=== PATIENT | male | born 1985 ===

== ENCOUNTER 2020-09-07 23:41 | Emergency (ER) | payer BC ==
[2020-09-08] MEDS ORDERED: Alum Hydrox/Mag Hydrox/Simeth 15 ML, Lidocaine 2% 5 ML PO ONE ×2 (00:07)
--- NOTE | 2020-09-08 00:18 | CR ---
INDICATION: Chest pain TECHNIQUE: Portable upright AP view of the chest COMPARISON: None FINDINGS: The lungs are clear. There is no sizable pleural effusion or pneumothorax. The cardiomediastinal silhouette is normal. The visualized osseous structures are unremarkable. IMPRESSION: No acute intrathoracic process. Dictated by Fariha Valenzuela MD @ Sep 08 2020 12:15AM Signed by Dr. Fariha Valenzuela @ Sep 08 2020 12:16AM
[2020-09-08 01:21] LABS: BLOOD UREA NITROGEN,BUN 15 mg/dL (7.0-18.0); CARBON DIOXIDE,CO2 26.3 mmol/L (21.0-32.0); CHLORIDE,CL 105 mmol/L (98-107); GLUCOSE RANDOM 138 mg/dL (74-106); LIPASE 199 U/L (73-393); SODIUM,NA 141 mmol/L (136-148)
--- NOTE | 2020-09-08 01:52 | EDM.PDOC ---
ED HPI GENERAL MEDICAL PROBLEM - General Chief Complaint: Chest Pain Stated Complaint: CHEST PAIN Time Seen by Provider: 09/07/20 23:57 - History of Present Illness INITIAL COMMENTS - FREE TEXT/NARRATIVE: CHIEF COMPLAINT(S): Chest pain HISTORY OF PRESENT ILLNESS: This is a 35-year-old man with a past medical history of psoriasis on Humira who comes to the emergency department with a chief complaint of chest pain. The patient states that for the last 3 to 4 hours he has been experiencing intense back and chest pain. He states that he is some associated difficulty with breathing but denies any cough. He states that the pain is mainly located in the middle of his back and radiates anteriorly to the epigastric area. He describes as a sharp 6-7 out of 10 pain he states that movement does make it worse. He states he has not yet tried any pain medication. So there is no relieving factors. He states that he additionally had some pain similar the night before. He denies any sick contacts any diaphoresis, nausea or vomiting. He states that it was probably heartburn but he was concerned so he came to the emergency department. He denies any recent travel, recent surgery, prior history of DVT or PE. He denies any family history of early onset CAD or sudden onset at young age. He denies any abdominal pain, fevers or chills. REVIEW OF SYSTEMS: Constitutional: Denies fever, chills. Eyes: Denies eye pain Ears, Nose, Mouth, & Throat: Denies earache Cardiovascular: Positive for chest pain Respiratory: Denies shortness of breath Gastrointestinal: Denies Nausea, vomiting, diarrhea, hematochezia. Genitourinary: Denies hematuria Skin:Denies a rash MSK: Positive for back pain. Neurological: Denies blurred vision, numbness, tingling, weakness Psychiatric: Denies depression PAST MEDICAL HISTORY: As per history of present illness and as reviewed below otherwise noncontributory. SURGICAL HISTORY: As per history of present illness and as reviewed below otherwise noncontributory. SOCIAL HISTORY: As per history of present illness and as reviewed below otherwise noncontributory. FAMILY HISTORY: As per history of present illness and as reviewed below otherwise noncontributory. EXAMINATION OF ORGAN SYSTEMS/BODY AREAS: Constitutional: Blood pressure is 132/87, heart rate 87, respiratory rate 18 with an oxygen saturation of 97% on room air. Temperature 36.1 General: Obese gentleman who does not appear to be in acute distress. Psychiatric: Appropriate mood and affect. Eyes: No scleral icterus or conjunctival erythema ENMT: Moist mucous membranes. No pharyngeal erythema Cardiovascular: Regular, rate, and rhythm. No gallops, murmurs, or rubs. Bilateral upper extremity pulses symmetric and intact. No peripheral edema. No JVD. No chest wall tenderness to palpation. Respiratory: Lungs clear to auscultation bilaterally. No wheezes, rales, or rhonchi. Gastrointestinal: Soft, non-tender, non-distended. Normoactive bowel sounds Genitourinary: No suprapubic tenderness Musculoskeletal: Normal range of motion. No midline cervical, thoracic, or lumbar tenderness. No paraspinal muscle tenderness. Skin: No lesions or abrasions. Neurological: Alert, GCS 15 MEDICAL DECISION MAKING AND COURSE IN THE ED WITH INTERPRETATION/REVIEW OF DIAGNOSTIC STUDIES: This is a 35-year-old man with a past medical history of obesity and psoriasis on Humira who comes to the emergency department with acute onset back pain that radiates anteriorly around his chest without any evidence of musculoskeletal tenderness on examination. At this time it is uncertain as to what is causing the patient's pain however he is low risk for ACS given his history. We did obtain an EKG which did not reveal any acute signs of ischemia. At this time the patient appears well with normal vital signs. Will trial the patient with a GI cocktail and reevaluate. Time:2340 Twelve-lead EKG interpreted by myself. Normal sinus rhythm at a rate of 135 beats per minute. Normal axis. TN interval is 135 ms. QRS duration is [address] segments are normal without elevations or depressions. No T wave inversions no Q waves present. Hypertrophy not noted. No prior EKGs in our system. Interpretation: Sinus rhythm On reevaluation the patient stated that his pain had improved slightly however he had continued pain. Therefore at this time I did discuss that we would obtain screening labs including CBC, CMP, lipase and a chest x-ray. We will also obtain a troponin. Given the patient pain is slightly improved we will hold off and reevaluate. Differential at this time does include pancreatitis, peptic ulcer disease, gastritis, GERD, ACS. Laboratory: CBC reveals a mild leukocytosis of 11.36 without any left shift. CMP reveals mildly elevated ALT at 74 otherwise unremarkable. Troponin is negative. Lipase is 199. The radiological images were viewed by myself along with reading the report from the radiologist. Chest x-ray does not reveal any acute intrathoracic process. After labs and imaging I did reevaluate the patient. The patient had complete resolution of his pain. I did discuss them at this time that is uncertain as to what is causing the patient's pain however given that it did improve with a GI cocktail reflux disease, peptic ulcer disease, gastritis is a consideration. I did discuss with him that I had like him to continue with famotidine 40 mg at bedtime for the next 2 weeks. I discussed that if there is a component of musculoskeletal pain that he could use Tylenol and [id number] Voltaren cream. I did encourage the patient not to take Tylenol at this time given concern for possible peptic ulcer disease/gastritis/GERD. I encouraged the patient to follow-up with his primary care physician for further monitoring. He is to return for any new or worsening symptoms. He was amenable to discharge at this time and had no further questions. DISPOSITION: The patient was discharged home in stable condition. The patient will follow up with primary care physician within 2 to 3 days CONDITION: Fair PROCEDURES: None FINAL IMPRESSION(S)/DIAGNOSES: 1. Acute back pain 2. Acute chest pain, atypical Bradley Swain M.D. chest area Pain Score (Numeric/FACES): 5 - Related Data Allergies Allergy/AdvReac Type Severity Reaction Status Date / Time No Known Allergies Allergy Verified 09/08/20 00:04 Home Meds: Home Meds Adalimumab [Humira] 1 injection INJECT ASDIRECTED 09/08/20 [History] Famotidine [Pepcid] 40 mg PO BEDTIME #14 tablet 09/08/20 [Rx] Past Medical History HEENT History: Reports: None Cardiovascular History: Reports: None Respiratory History: Reports: None Gastrointestinal History: Reports: None Genitourinary History: Reports: None Musculoskeletal History: Reports: Other (See Below) Other Musculoskeletal History: Psoriasis Neurological History: Reports: None Psychiatric History: Reports: None Endocrine/Metabolic History: Reports: None Insulin Pump Model and Maintenance Engineer: None Immunologic History: Reports: None Oncologic (Cancer) History: Reports: None Dermatologic History: Reports: None - Past Surgical History HEENT Surgical History: Reports: Tonsillectomy Social & Family History - Caffeine Use Caffeine Use: Reports: Energy Drinks - Recreational Drug Use Recreational Drug Use: No ED ROS GENERAL - Review of Systems Review Of Systems: See Below ED EXAM, GENERAL - Physical Exam Exam: See Below Course - Vital Signs Last Recorded V/S: Last Vital Signs Temp 36.1 C 09/07/20 23:45 Pulse 92 09/08/20 02:08 Resp 18 09/07/20 23:45 BP 131/64 09/08/20 02:08 Pulse Ox 93 L 09/08/20 02:08 - Orders/Labs/Meds Labs: Laboratory Tests 09/07/20 09/07/20 Range/Units 23:44 23:44 WBC 11.36 H (4.0-11.0) K/uL RBC 5.32 (4.50-5.90) M/uL Hgb 15.1 (13.0-17.0) g/dL Hct 44.7 (38.0-50.0) % MCV 84.0 (80.0-98.0) fL MCH 28.4 (27.0-32.0) pg MCHC 33.8 (31.0-37.0) g/dL RDW Std Deviation 39.8 (28.0-62.0) fl RDW Coeff of Danielito 13 (11.0-15.0) % Plt Count 266 (150-400) K/uL MPV 11.10 (7.40-12.00) fL Neut % (Auto) 57.0 (48.0-80.0) % Lymph % (Auto) 27.4 (16.0-40.0) % [place] % (Auto) 10.5 (0.0-15.0) % Eos % (Auto) 4.6 (0.0-7.0) % Baso % (Auto) 0.5 (0.0-1.5) % Neut # (Auto) 6.5 H (1.4-5.7) K/uL Lymph # (Auto) 3.1 H (0.6-2.4) K/uL [place] # (Auto) 1.2 H (0.0-0.8) K/uL Eos # (Auto) 0.5 (0.0-0.7) K/uL Baso # (Auto) 0.1 (0.0-0.1) K/uL Sodium 141 (136-148) mmol/L Potassium 4.0 (3.5-5.1) mmol/L Chloride 105 (98-107) mmol/L Carbon Dioxide 26.3 (21.0-32.0) mmol/L BUN 15 (7.0-18.0) mg/dL Creatinine 1.1 (0.8-1.3) mg/dL Est Cr Clr Drug Dosing 110.02 mL/min Estimated GFR (MDRD) > 60.0 ml/min Glucose 138 H (74-106) mg/dL Calcium 8.9 (8.5-10.1) mg/dL Total Bilirubin 0.5 (0.2-1.0) mg/dL AST 26 (15-37) IU/L ALT 74 H (14-63) IU/L Alkaline Phosphatase 51 (46-116) U/L Troponin I < 0.050 (0.000-0.056) ng/mL Total Protein 7.6 (6.4-8.2) g/dL Albumin 3.8 (3.4-5.0) g/dL Globulin 3.8 (2.6-4.0) g/dL Albumin/Globulin Ratio 1.0 (0.9-1.6) Lipase 199 (73-393) U/L Meds: Medications Discontinued Medications Generic Name Dose Route Start Last Admin Trade Name Freq PRN Reason Stop Dose Admin Al Hydroxide/Mg Hydroxide 15 0 ml 09/08/20 00:07 09/08/20 00:11 ml/ Lidocaine HCl 5 ml PO 09/08/20 00:08 1 each ONETIME ONE Administration Departure - Departure Time of Disposition: 01:51 Disposition: Home, Self-Care 01 Condition: Fair Clinical Impression: GERD (gastroesophageal reflux disease) - Discharge Information *PRESCRIPTION DRUG MONITORING PROGRAM REVIEWED*: No *COPY OF PRESCRIPTION DRUG MONITORING REPORT IN PATIENT VIRA: No Prescriptions: Famotidine [Pepcid] 40 mg PO BEDTIME #14 tablet Instructions: Gastroesophageal Reflux Disease, Adult, [id number] Referrals: Levon Gaytan MD [Primary Care Provider] - Forms: ED Department Discharge Additional Instructions: You were evaluated today on an emergent basis. At this time your work-up was negative. At this time given that your symptoms improved with our GI cocktail I do believe there is some reflux disease or ulcers that may be causing your pain. I recommend using Pepcid 40 mg at bedtime for the next 2 weeks. In addition, for your back pain I do recommend you use Tylenol 500 mg to 1000 mg every 6 hours for pain. Please use this scheduled for the next 2 days and then use as needed. You may use [id number] Voltaren cream four times a day to your back if the Tylenol does not seem to be working. As discussed he may need an outpatient sleep study please speak with your primary care physician regarding this. If you have any new or worsening symptoms please return to the emergency department. [facility] [address] [place] [id number] [facility] [address] [place] [id number] The patient is informed of any results of their evaluation and diagnostic workup and all questions are answered. They are given discharge instructions and return precautions. The patient is stable for discharge. The patient states they understand and agree with the plan and that they will return if their symptoms get worse or if they have any new concerns. The following information is given to patients seen in the emergency department who are being discharged to home. This information is to outline your options for follow-up care. We provide all patients seen in our emergency department with a follow-up referral. The need for follow-up, as well as the timing and circumstances, are variable depending upon the specifics of your emergency department visit. If you don't have a primary care physician on staff, we will provide you with a referral. We always advise you to contact your personal physician following an emergency department visit to inform them of the circumstance of the visit and for follow-up with them and/or the need for any referrals to a consulting specialist. The emergency department will also refer you to a specialist when appropriate. This referral assures that you have the opportunity for follow-up care with a specialist. All of these measure are taken in an effort to provide you with optimal care, which includes your follow-up. Under all circumstances we always encourage you to contact your private physician who remains a resource for coordinating your care. When calling for follow-up care, please make the office aware that this follow-up is from your recent emergency room visit. If for any reason you are refused follow-up, please contact the [facility] Emergency Department at and asked to speak to the emergency department charge nurse. Sepsis Event Note (ED) - Evaluation Sepsis Screening Result: No Definite Risk
[2020-09-08 02:09] VITALS: BP 131/64; PULSE 92
== END 2020-09-08 02:09 | disposition home or self-care (01) ==
LOC: MW.ED 23:41
DX: K21.9 Gastro-esophageal reflux disease without esophagitis (principal); M54.6 Pain in thoracic spine; E66.9 Obesity, unspecified; Z68.41 Body mass index [BMI] 40.0-44.9, adult; Z79.899 Other long term (current) drug therapy
CPT/HCPCS: 36415; 71045; 80053; 83690; 84484; 85025; 93005; 99285; A9270; 93010; 99284